=== PATIENT | female | born 2000 | race Caucasian/White ===

== ENCOUNTER → 2020-03-19 | Outpatient (CLI) | payer BC, MEDICAID ==
[2020-03-19] VITALS (17 sets, daily range): BP systolic 114–138; BP diastolic 60–94
== END | disposition home or self-care (01) ==
LOC: CARD DIAG 12:22
PROVIDERS: ATTEND Internal Medicine Interventional Cardiology
DX: R55 Syncope and collapse (principal)
CPT/HCPCS: 93660

== ENCOUNTER 2021-12-28 14:54 | Emergency (ER) | payer BC, MEDICAID ==
[~2021-12-28] VITALS: Ht 170.2 cm; Wt 52.0 kg
[2021-12-28] MEDS ORDERED: ondansetron/PF 4mg/2ml inj IV ONE (15:10)
[2021-12-28] MEDS ORDERED: haloperidol lactate 5mg/ml inj IM ONE (15:10)
[2021-12-28] MEDS ORDERED: diphenhydrAMINE 50 mg/ml inj IM ONE (15:10)
[2021-12-28] MEDS ORDERED: normal saline 1000ML IV soln IVB ONE (15:10)
[2021-12-28] MEDS ORDERED: LORazepam 2 mg/ml vial IV ONE (15:10)
--- NOTE | 2021-12-28 15:44 | NUR ---
REGISTRATION OBTAINED PARENT CONTACT #'S: BEATRIZ THOMPSON, MOTHER SHAKIR THOMPSON, FATHER PT'S MOTHER IS THE ONLY CONTACT LISTED ON PT'S CHART.
[2021-12-28 16:08] LABS: BASOPHILS % (AUTO) 0.3 % (0-1); EOSINOPHILS % (AUTO) 0.8 % (0-6); HEMATOCRIT 36.7 % (35.0-45.0); HEMOGLOBIN 12.2 g/dl (12.0-16.0); LYMPHOCYTES # (AUTO) 0.9 X10'3 (1.1-4.8); LYMPHOCYTES % (AUTO) 19.4 % (21-51); MEAN CORPUSCULAR HEMOGLOBIN 30.9 PG (27.0-31.0); MEAN CORPUSCULAR HGB CONC 33.3 g/dL (33.0-36.5); MEAN CORPUSCULAR VOLUME 92.6 FL (78-98); MEAN PLATELET VOLUME 8.8 FL (7.4-10.4); MONOCYTES # (AUTO) 0.3 X10'3 (0-0.9); MONOCYTES % (AUTO) 7.3 % (2-12); NEUTROPHILS # (AUTO) 3.5 X10'3 (1.8-7.7); NEUTROPHILS % (AUTO) 72.2 % (42-75); PLATELET COUNT 144 X10'3 (140-440); RED BLOOD COUNT 3.96 X10'6 (4.20-5.60); RED CELL DISTRIBUTION WIDTH 13.5 % (11.5-14.5); WHITE BLOOD COUNT 4.8 X10'3 (4.5-11.0)
--- NOTE | 2021-12-28 16:36 | NUR ---
ANKLE RESTRAINTS REMOVED PER PROVIDER REQUEST TO SEE HOW PT DOES.
[2021-12-28 16:38] LABS: ALANINE AMINOTRANSFERASE 34 U/L (12-78); ALBUMIN 3.6 G/DL (3.4-5.0); ALBUMIN/GLOBULIN RATIO 1.2 (1.1-1.5); ALKALINE PHOSPHATASE 69 IU/L (46-116); ANION GAP 13 (8-16); ASPARTATE AMINO TRANSFERASE 22 U/L (10-37); BILIRUBIN,TOTAL 0.3 MG/DL (0.1-1.0); BLOOD UREA NITROGEN 8 MG/DL (7-18); BUN/CREATININE RATIO 9.4 (6.6-38.0); CALCIUM 7.8 MG/DL (8.5-10.1); CHLORIDE 109 MMOL/L (99-107); CREATININE 0.85 MG/DL (0.40-0.90); GLUCOSE 68 MG/DL (70-104); POTASSIUM 3.6 MMOL/L (3.5-5.1); SODIUM 145 MMOL/L (135-145); TOTAL CARBON DIOXIDE 23.1 MMOL/L (24-32); TOTAL PROTEIN 6.6 G/DL (6.4-8.2); eGFR 83 ML/MIN
[2021-12-28 16:47] LABS: ETHANOL < 0.010 GM/DL (0.0-0.010)
[2021-12-28 17:31] LABS: CREATINE KINASE 134 U/L (26-192)
--- NOTE | 2021-12-28 18:00 | NUR ---
wrist retraints removed, assist to commoded, answering quesions appropriately
[2021-12-28 18:36] LABS: CLARITY,URINE SLIGHTLY CLOUDY (Clear); COLOR,URINE YELLOW (Yellow); GLUCOSE, URINE NEGATIVE (Neg); KETONES,URINE 15 mg/dl (Neg); LEUKOCYTE ESTERASE ,URINE NEGATIVE (Neg); NITRITES, URINE NEGATIVE (Neg); OCCULT BLOOD,URINE NEGATIVE (Neg); PH,URINE 6.5 (4.8-8.0); PROTEIN,URINE TRACE mg/dl (Neg); UROBILINOGEN,URINE 0.2 E.U/dL (0.2-1.0)
[2021-12-28 18:43] LABS: URINE HCG NEGATIVE (NEG)
[2021-12-28 18:49] LABS: URINE AMPHETAMINE SCREEN NEGATIVE (Neg); URINE BARBITUATE SCREEN NEGATIVE (Neg); URINE BENZODIAZEPINES SCREEN POSITIVE (Neg); URINE CANNABINOID SCREEN NEGATIVE (Neg); URINE COCAINE SCREEN NEGATIVE (Neg); URINE METHADONE SCREEN NEGATIVE (Neg); URINE OPIATE SCREEN NEGATIVE (Neg); URINE PHENCYCLIDINE SCREEN NEGATIVE (Neg)
[2021-12-28 18:56] LABS: UA COLLECTION TYPE CLN CATCH MIDSTREAM
[2021-12-28 19:04] LABS: BACTERIA,URINE 2+ /HPF (Neg); MUCUS STRANDS FEW /LPF (Neg); SQUAMOUS EPITHELIAL CELL,UR FEW /LPF (FEW); WBC,URINE 0-4 /HPF (0-4)
[2021-12-28 19:05] LABS: CAL OXALATE CRYSTALS FEW /HPF (NEGATIVE); HYALINE CASTS 0-3 /LPF (NEGATIVE)
[2021-12-28] MEDS ORDERED: QUET100T34 PO (21:16)
[2021-12-28] MEDS ORDERED: OLAN5TAB75 PO (21:16)
[2021-12-28] MEDS ORDERED: ERGO500054 (21:16)
[2021-12-28] MEDS ORDERED: BUPR300T86 PO (21:16)
[2021-12-28] MEDS ORDERED: BUPR-317 PO (21:16)
[2021-12-28] MEDS ORDERED: DULO30CA52 PO (21:16)
[2021-12-28] MEDS ORDERED: PROP10TA10 PO (21:16)
[2021-12-28] MEDS ORDERED: LAMO25TA5 (21:16)
[2021-12-28] MEDS ORDERED: LEVO20CA PO (21:16)
--- NOTE | 2021-12-28 21:58 | NUR ---
PACKET SENT TO [facility]
--- NOTE | 2021-12-28 23:07 | NUR ---
The patient has been resting quietly on her bed. She currently appears to be sleeping
--- NOTE | 2021-12-29 00:22 | NUR ---
The patient appears to be sleeping
--- NOTE | 2021-12-29 02:05 | NUR ---
The patient appears to be sleeping
--- NOTE | 2021-12-29 04:23 | NUR ---
The patient appears to be sleeping
--- NOTE | 2021-12-29 05:21 | NUR ---
The patient appears to be sleeping
--- NOTE | 2021-12-29 06:30 | NUR ---
Pt is lying in bed on her right side, she appears to be sleeping.
[2021-12-29] MEDS ORDERED: propranolol 10mg tablet PO SCH (08:00)
--- NOTE | 2021-12-29 08:14 | NUR ---
Held pt's Inderal for decreased BP 97/61.
--- NOTE | 2021-12-29 09:51 | NUR ---
Pt ate breakfast then went back to sleep.
--- NOTE | 2021-12-29 12:01 | NUR ---
[facility] at bedside evaluating pt.
--- NOTE | 2021-12-29 12:26 | NUR ---
Pt ate her lunch. Pt is endorsing depression and SI. When asked about a plan, pt stated that she couldn't do anything here. Asked pt what she would do when she went home. Pt thought about it for a bit and replied, "I like to jump." Pt denied AH/VH/HI. Pt stated that she doesn't want to hurt anyone else, that "they can all go on living this shitty life." Pt states that she would really rather go home and than go to a psych facility.
--- NOTE | 2021-12-29 13:27 | NUR ---
Joseph cormier in ED - 12/29/21 at 1530 by ANGIE Per [facility] pt is being on a 5150 for DTS.
--- NOTE | 2021-12-29 13:27 | NUR ---
Per [facility], pt is being put on a 5150 for DTS.
[2021-12-29] MEDS ORDERED: diphenhydrAMINE 50 mg/ml inj IM ONE (14:00)
[2021-12-29] MEDS ORDERED: haloperidol lactate 5mg/ml inj IM ONE (14:00)
[2021-12-29] MEDS ORDERED: LORazepam 2 mg/ml vial IM ONE (14:00)
--- NOTE | 2021-12-29 14:09 | NUR ---
Pt starts banging her head on the bed rail. Pt then starts punching herself in the face. Pt had a pillow on her head but then started hitting herself. When her hands were held to prevent self injury, pt started writhing and screaming. Pt then started biting herself. Pt placed in 4pt restraints with security at bedside. Pt then given Haldol 5mg IM, benadryl 50mg IM, Ativan 2mg IM.
--- NOTE | 2021-12-29 14:18 | NUR ---
Pt fell asleep. Removed leg restraints. pt woke up before arm restraints removed.
--- NOTE | 2021-12-29 14:39 | NUR ---
Pt calm and sleepy. Restraints removed
--- NOTE | 2021-12-29 15:02 | NUR ---
[facility] called, pt has been accepted at [facility] by Dr Marie at 1430.
--- NOTE | 2021-12-29 15:28 | NUR ---
[employer] here to transport pt to [facility], pt alert, used the toilet, escorted off the unit by security and customer service driver.
[2021-12-29 16:07] VITALS: BP 106/69
== END 2021-12-29 15:28 ==
LOC: ER 14:55
DX: R45.1 Restlessness and agitation (principal); Z20.822 Contact with and (suspected) exposure to COVID-19; R46.89 Other symptoms and signs involving appearance and behavior; Z88.8 Allergy status to other drugs, medicaments and biological substances; Z91.011 Allergy to milk products
CPT/HCPCS: 36415; 80053; 80305; 80320; 81001; 81025; 82550; 84443; 85025; 87811; 96372; 99291; J1200; J1630; J2060; J7030

== ENCOUNTER 2023-11-14 14:57 | Inpatient (IN) | payer BC, MEDICAID ==
[~2023-11-14] VITALS: Ht 167.6 cm; Wt 65.2 kg
[~2023-11-14 14:57] MED LIST: PROP10TA10 PO
[2023-11-14 15:46] LABS: BASOPHILS % (AUTO) 0.5 % (0-1); EOSINOPHILS % (AUTO) 0.6 % (0-6); HEMATOCRIT 43.6 % (35.0-45.0); HEMOGLOBIN 14.7 g/dl (12.0-16.0); LYMPHOCYTES % (AUTO) 20.5 % (21-51); MEAN CORPUSCULAR HGB CONC 33.6 g/dL (33.0-36.5); MEAN CORPUSCULAR VOLUME 92.1 FL (78-98); MEAN PLATELET VOLUME 8.1 FL (7.4-10.4); MONOCYTES # (AUTO) 0.3 X10'3 (0-0.9); MONOCYTES % (AUTO) 5.8 % (2-12); NEUTROPHILS # (AUTO) 3.6 X10'3 (1.8-7.7); NEUTROPHILS % (AUTO) 72.6 % (42-75); PLATELET COUNT 210 X10'3 (140-440); RED BLOOD COUNT 4.73 X10'6 (4.20-5.60); RED CELL DISTRIBUTION WIDTH 12.6 % (11.5-14.5)
[2023-11-14 16:20] LABS: ALBUMIN 4.3 G/DL (3.4-5.0); ANION GAP 7 (8-16); BLOOD UREA NITROGEN 12 MG/DL (7-18); BUN/CREATININE RATIO 12.4 (10.0-20.0); CALCIUM 8.6 MG/DL (8.5-10.1); CHLORIDE 105 MMOL/L (99-107); CREATININE 0.97 MG/DL (0.40-0.90); ETHANOL < 10 MG/DL (<10); GLUCOSE 81 MG/DL (70-104); SODIUM 142 MMOL/L (135-145); THYROID STIMULATING HORMONE 1.29 ulU/ml (0.34-4.50); TOTAL CARBON DIOXIDE 30.2 MMOL/L (24-32); eCRCL 83 ML/MIN; eGFR 70 ML/MIN
[2023-11-14 17:31] LABS: BILIRUBIN,URINE NEGATIVE (Neg); CLARITY,URINE SLIGHTLY CLOUDY (Clear); COLOR,URINE YELLOW (Yellow); GLUCOSE, URINE NEGATIVE (Neg); KETONES,URINE NEGATIVE (Neg); LEUKOCYTE ESTERASE ,URINE NEGATIVE (Neg); NITRITES, URINE NEGATIVE (Neg); OCCULT BLOOD,URINE TRACE-INTACT (Neg); PROTEIN,URINE NEGATIVE (Neg); UROBILINOGEN,URINE 0.2 E.U/dL (0.2-1.0)
[2023-11-14 17:35] LABS: MUCUS STRANDS FEW /LPF (Neg); SQUAMOUS EPITHELIAL CELL,UR MODERATE /LPF (FEW); UA COLLECTION TYPE CLN CATCH MIDSTREAM
[2023-11-14 17:37] LABS: BACTERIA,URINE 1+ /HPF (Neg); WBC,URINE 0-4 /HPF (0-4)
[2023-11-14 17:38] LABS: URINE HCG NEGATIVE (NEG)
[2023-11-14] MEDS ORDERED: LURA60TA PO (17:45)
[2023-11-14 17:47] LABS: URINE AMPHETAMINE SCREEN NEGATIVE (Neg); URINE BARBITUATE SCREEN NEGATIVE (Neg); URINE BENZODIAZEPINES SCREEN NEGATIVE (Neg); URINE CANNABINOID SCREEN POSITIVE (Neg); URINE COCAINE SCREEN NEGATIVE (Neg); URINE METHADONE SCREEN NEGATIVE (Neg); URINE OPIATE SCREEN NEGATIVE (Neg); URINE PHENCYCLIDINE SCREEN NEGATIVE (Neg)
[2023-11-14] MEDS: lurasidone 20mg tablet PO ONE (18:53)
[2023-11-14] MEDS: acetaminophen 325mg tablet PO PRN (19:07)
[2023-11-15 02:20] VITALS: RESP 16
[2023-11-15 03:00] VITALS: BP 119/68; PULSE 75; RESP 16; TEMP 97; O2SAT 97
[2023-11-15] MEDS ORDERED: magnesium hydroxide 30ml (MOM) UD suspension PO PRN (03:25)
[2023-11-15] MEDS ORDERED: acetaminophen 325mg tablet PO PRN ×2 (03:25)
[2023-11-15] MEDS ORDERED: mag hydrox/Alum hydrox/simeth 30ml oral suspension PO PRN (03:25)
[2023-11-15 07:15] VITALS: BP 115/63; PULSE 76; RESP 16; TEMP 98.5; O2SAT 96
[2023-11-15 07:45] VITALS: RESP 16; O2SAT 96
[2023-11-15] MEDS: lurasidone 60mg tablet PO SCH (17:47)
[2023-11-15] MEDS: loperamide 2mg capsule PO ONE (17:55)
[2023-11-15 19:00] VITALS: RESP 14; O2SAT 100
[2023-11-15 20:00] VITALS: BP 103/64; PULSE 78; RESP 14; TEMP 98.4; O2SAT 100
[2023-11-15] MEDS: mirtazapine 15mg tablet PO SCH (20:11)
[2023-11-16 07:15] VITALS: BP 110/57; PULSE 71; RESP 16; TEMP 97.4; O2SAT 97
[2023-11-16 07:59] VITALS: RESP 16; O2SAT 97
[2023-11-16] MEDS: lurasidone 20mg tablet PO STA (17:40)
[2023-11-16 19:00] VITALS: RESP 16; O2SAT 98
[2023-11-16 20:00] VITALS: BP 114/72; PULSE 78; RESP 16; TEMP 97.7; O2SAT 98
[2023-11-16] MEDS: ondansetron 4mg rapidly disintigrating tab PO PRN (20:43)
[2023-11-17 07:30] VITALS: BP 104/56; PULSE 66; RESP 16; TEMP 97.1; O2SAT 98
[2023-11-17] MEDS: haloperidol lactate 5mg/ml inj ONE (17:02)
[2023-11-17] MEDS: diphenhydrAMINE 50 mg/ml inj ONE (17:02)
[2023-11-17] MEDS: LORazepam 2 mg/ml vial ONE (17:02)
[2023-11-17] MEDS: lurasidone 20mg tablet PO SCH (17:58)
[2023-11-17 19:00] VITALS: RESP 16
[2023-11-17 20:00] VITALS: RESP 18
[2023-11-18 07:34] VITALS: BP 110/61; PULSE 77; RESP 16; TEMP 98; O2SAT 100
[2023-11-18 19:00] VITALS: RESP 16; O2SAT 97
[2023-11-18 20:00] VITALS: BP 114/54; PULSE 93; RESP 16; TEMP 98.4; O2SAT 97
[2023-11-19] MEDS: mirtazapine 15mg tablet PO ONE (02:15)
[2023-11-19 07:40] VITALS: BP 109/56; PULSE 66; RESP 15; TEMP 97.9; O2SAT 100
[2023-11-19] MEDS ORDERED: LURA20TA2 PO (13:51)
[2023-11-19] MEDS ORDERED: MIRT-87 PO (13:51)
== END 2023-11-19 15:05 | disposition home or self-care (01) | DRG 885 ==
LOC: ER 14:57 → ED HOLD 19:42 → ADULT MH 19:43
PROVIDERS: ATTEND Psychiatry & Neurology Psychiatry
PROC: GZ56ZZZ Individual Psychotherapy, Supportive (ICD-10-PCS; principal; 2023-11-16)
PROC: GZHZZZZ Group Psychotherapy (ICD-10-PCS; 2023-11-16)
DX: F31.76 Bipolar disorder, in full remission, most recent episode depressed (principal); R45.851 Suicidal ideations; Z20.822 Contact with and (suspected) exposure to COVID-19; F84.0 Autistic disorder; F41.9 Anxiety disorder, unspecified; Z88.0 Allergy status to penicillin; Z91.012 Allergy to eggs; Z91.011 Allergy to milk products; Z91.51 Personal history of suicidal behavior
CPT/HCPCS: 36415; 80048; 80305; 80320; 81001; 81025; 84443; 85025; 87081; 87811; 99285; J1200; J1630; J2060

== ENCOUNTER 2023-11-27 11:40 | Emergency (ER) | payer BC, MEDICAID ==
[~2023-11-27] VITALS: Ht 167.6 cm; Wt 68.7 kg
[~2023-11-27 11:40] MED LIST changes: +LURA20TA2 PO; +MIRT-87 PO; -PROP10TA10 PO
[2023-11-27 12:30] LABS: BASOPHILS % (AUTO) 0.4 % (0-1); EOSINOPHILS # (AUTO) 0.1 X10'3 (0-0.9); HEMATOCRIT 41.4 % (35.0-45.0); HEMOGLOBIN 13.6 g/dl (12.0-16.0); LYMPHOCYTES # (AUTO) 1.3 X10'3 (1.1-4.8); LYMPHOCYTES % (AUTO) 20.5 % (21-51); MEAN CORPUSCULAR HGB CONC 32.8 g/dL (33.0-36.5); MEAN CORPUSCULAR VOLUME 91.4 FL (78-98); MEAN PLATELET VOLUME 8.2 FL (7.4-10.4); MONOCYTES # (AUTO) 0.4 X10'3 (0-0.9); MONOCYTES % (AUTO) 5.8 % (2-12); NEUTROPHILS # (AUTO) 4.5 X10'3 (1.8-7.7); NEUTROPHILS % (AUTO) 72.3 % (42-75); PLATELET COUNT 167 X10'3 (140-440); RED BLOOD COUNT 4.53 X10'6 (4.20-5.60); RED CELL DISTRIBUTION WIDTH 12.3 % (11.5-14.5); WHITE BLOOD COUNT 6.3 X10'3 (4.5-11.0)
[2023-11-27 12:37] LABS: ALBUMIN 3.6 G/DL (3.4-5.0); ANION GAP 6 (8-16); BLOOD UREA NITROGEN 5 MG/DL (7-18); BUN/CREATININE RATIO 5.6 (10.0-20.0); CHLORIDE 106 MMOL/L (99-107); ETHANOL < 10 MG/DL (<10); GLUCOSE 85 MG/DL (70-104); POTASSIUM 3.7 MMOL/L (3.5-5.1); SODIUM 141 MMOL/L (135-145); eCRCL 89 ML/MIN; eGFR 76 ML/MIN
[2023-11-27 13:27] LABS: BILIRUBIN,URINE NEGATIVE (Neg); CLARITY,URINE SLIGHTLY CLOUDY (Clear); COLOR,URINE YELLOW (Yellow); GLUCOSE, URINE NEGATIVE (Neg); KETONES,URINE NEGATIVE (Neg); LEUKOCYTE ESTERASE ,URINE NEGATIVE (Neg); NITRITES, URINE NEGATIVE (Neg); OCCULT BLOOD,URINE NEGATIVE (Neg); PH,URINE 6.5 (4.8-8.0); PROTEIN,URINE NEGATIVE (Neg); UROBILINOGEN,URINE 0.2 E.U/dL (0.2-1.0)
[2023-11-27 13:32] LABS: UA COLLECTION TYPE CLN CATCH MIDSTREAM; URINE HCG NEGATIVE (NEG)
[2023-11-27 13:33] LABS: BACTERIA,URINE 3+ /HPF (Neg); MUCUS STRANDS FEW /LPF (Neg); SQUAMOUS EPITHELIAL CELL,UR MANY /LPF (FEW)
[2023-11-27 13:34] LABS: WBC,URINE 0-4 /HPF (0-4)
[2023-11-27 13:35] LABS: CAL OXALATE CRYSTALS 4+ /HPF (NEGATIVE)
[2023-11-27 13:45] LABS: URINE AMPHETAMINE SCREEN NEGATIVE (Neg); URINE BARBITUATE SCREEN NEGATIVE (Neg); URINE BENZODIAZEPINES SCREEN NEGATIVE (Neg); URINE CANNABINOID SCREEN POSITIVE (Neg); URINE COCAINE SCREEN NEGATIVE (Neg); URINE METHADONE SCREEN NEGATIVE (Neg); URINE OPIATE SCREEN NEGATIVE (Neg); URINE PHENCYCLIDINE SCREEN NEGATIVE (Neg)
[2023-11-27] MEDS: nicotine 21mg patch - 24 hr TD ONE (15:24)
[2023-11-27] MEDS: acetaminophen 325mg tablet PO ONE (16:50)
[2023-11-27] MEDS ORDERED: LURA80TA2 PO (20:13)
[2023-11-27] MEDS ORDERED: MIRT-142 PO (20:14)
[2023-11-27] MEDS: mirtazapine 15mg tablet PO SCH (21:04)
[2023-11-27] MEDS: lurasidone 20mg tablet PO SCH (21:05)
[2023-11-28 11:58] VITALS: BP 122/72; PULSE 72; RESP 16; TEMP 98.8; O2SAT 99
== END 2023-11-28 11:40 | disposition short-term general hospital (02) ==
LOC: ER 11:41
DX: R45.851 Suicidal ideations (principal); F31.81 Bipolar II disorder; F12.90 Cannabis use, unspecified, uncomplicated; Z88.0 Allergy status to penicillin; Z91.012 Allergy to eggs; Z91.011 Allergy to milk products; Z91.018 Allergy to other foods; Z79.899 Other long term (current) drug therapy; Z20.822 Contact with and (suspected) exposure to COVID-19
CPT/HCPCS: 36415; 80048; 80305; 80320; 81001; 81025; 85025; 87811; 99285

== ENCOUNTER 2024-02-23 13:49 | Inpatient (IN) | payer BC, MEDICAID ==
[~2024-02-23] VITALS: Ht 167.6 cm; Wt 75.5 kg
[~2024-02-23 13:49] MED LIST changes: -LURA20TA2 PO; +LURA80TA2 PO; +MIRT-142 PO; -MIRT-87 PO
[2024-02-23 14:55] LABS: BASOPHILS % (AUTO) 0.4 % (0-1); EOSINOPHILS # (AUTO) 0.1 X10'3 (0-0.9); EOSINOPHILS % (AUTO) 0.8 % (0-6); HEMATOCRIT 41.7 % (35.0-45.0); HEMOGLOBIN 14.1 g/dl (12.0-16.0); LYMPHOCYTES # (AUTO) 1.1 X10'3 (1.1-4.8); LYMPHOCYTES % (AUTO) 13.5 % (21-51); MEAN CORPUSCULAR HEMOGLOBIN 31.1 PG (27.0-31.0); MEAN CORPUSCULAR HGB CONC 33.8 g/dL (33.0-36.5); MEAN CORPUSCULAR VOLUME 91.9 FL (78-98); MEAN PLATELET VOLUME 8.1 FL (7.4-10.4); MONOCYTES # (AUTO) 0.4 X10'3 (0-0.9); MONOCYTES % (AUTO) 5.1 % (2-12); NEUTROPHILS # (AUTO) 6.3 X10'3 (1.8-7.7); NEUTROPHILS % (AUTO) 80.2 % (42-75); PLATELET COUNT 211 X10'3 (140-440); RED BLOOD COUNT 4.53 X10'6 (4.20-5.60); RED CELL DISTRIBUTION WIDTH 12.6 % (11.5-14.5); WHITE BLOOD COUNT 7.9 X10'3 (4.5-11.0)
[2024-02-23 14:55] LABS: BILIRUBIN,URINE NEGATIVE (Neg); CLARITY,URINE CLOUDY (Clear); COLOR,URINE YELLOW (Yellow); GLUCOSE, URINE NEGATIVE (Neg); KETONES,URINE NEGATIVE (Neg); LEUKOCYTE ESTERASE ,URINE NEGATIVE (Neg); NITRITES, URINE NEGATIVE (Neg); OCCULT BLOOD,URINE TRACE-INTACT (Neg); PH,URINE 7.5 (4.8-8.0); PROTEIN,URINE NEGATIVE (Neg); UROBILINOGEN,URINE 0.2 E.U/dL (0.2-1.0)
[2024-02-23 14:57] LABS: UA COLLECTION TYPE CLN CATCH MIDSTREAM; URINE HCG NEGATIVE (NEG)
[2024-02-23 15:04] LABS: AMORPHOUS URATES 3+; BACTERIA,URINE FEW /HPF (Neg); MUCUS STRANDS NONE SEEN /LPF (Neg); RBC,URINE 0-2 /HPF (0-2); SQUAMOUS EPITHELIAL CELL,UR FEW /LPF (FEW); WBC,URINE 0-4 /HPF (0-4)
[2024-02-23 15:15] LABS: ALBUMIN 3.9 G/DL (3.4-5.0); ANION GAP 10 (8-16); BLOOD UREA NITROGEN 9 MG/DL (7-18); BUN/CREATININE RATIO 10.2 (10.0-20.0); CALCIUM 8.8 MG/DL (8.5-10.1); CHLORIDE 103 MMOL/L (99-107); CREATININE 0.88 MG/DL (0.40-0.90); ETHANOL < 10 MG/DL (<10); GLUCOSE 121 MG/DL (70-104); POTASSIUM 4.1 MMOL/L (3.5-5.1); SODIUM 139 MMOL/L (135-145); THYROID STIMULATING HORMONE 2.33 ulU/ml (0.34-4.50); TOTAL CARBON DIOXIDE 25.9 MMOL/L (24-32); eCRCL 91 ML/MIN; eGFR 78 ML/MIN
[2024-02-23 15:16] LABS: URINE AMPHETAMINE SCREEN NEGATIVE (Neg); URINE BARBITUATE SCREEN NEGATIVE (Neg); URINE BENZODIAZEPINES SCREEN NEGATIVE (Neg); URINE CANNABINOID SCREEN POSITIVE (Neg); URINE COCAINE SCREEN NEGATIVE (Neg); URINE METHADONE SCREEN NEGATIVE (Neg); URINE OPIATE SCREEN NEGATIVE (Neg); URINE PHENCYCLIDINE SCREEN NEGATIVE (Neg)
[2024-02-23] MEDS ORDERED: magnesium hydroxide 30ml (MOM) UD suspension PO PRN (20:20)
[2024-02-23] MEDS ORDERED: mag hydrox/Alum hydrox/simeth 30ml oral suspension PO PRN (20:20)
[2024-02-23] MEDS ORDERED: acetaminophen 325mg tablet PO PRN (20:20)
[2024-02-23 20:54] VITALS: RESP 18; O2SAT 99
[2024-02-23] MEDS ORDERED: lurasidone 20mg tablet PO ONE (21:25)
[2024-02-23] MEDS ORDERED: mirtazapine 15mg tablet PO ONE (21:25)
[2024-02-23] MEDS: traZODone 50mg tablet PO ONE (21:45)
[2024-02-23] MEDS: hydrOXYzine 25 MG tablet PO ONE (21:45)
[2024-02-23] MEDS: lamoTRIgine 25mg tablet PO SCH (22:09)
[2024-02-24 07:00] VITALS: RESP 14; O2SAT 97
[2024-02-24 07:23] LABS: CHOL/HDL RATIO 2.7 (0.00-4.99); CHOLESTEROL 147 MG/DL (0-200); HDL CHOLESTEROL 55 MG/DL (35-60); LDL CHOLESTEROL 79 MG/DL (50-100); TRIGLYCERIDES 106 MG/DL (20-135)
[2024-02-24 08:00] VITALS: BP 125/82; PULSE 114; RESP 14; TEMP 98.2; O2SAT 97
[2024-02-24 08:07] LABS: HEMOGLOBIN A1C 4.8 % (4.5-6.2)
[2024-02-24] MEDS: LORazepam 1 MG tablet PO ONE (09:36)
[2024-02-24 18:56] VITALS: RESP 20
[2024-02-24 19:19] VITALS: BP 126/71; PULSE 99; RESP 16; TEMP 99.3; O2SAT 98
[2024-02-24] MEDS ORDERED: LUMA42CA PO (19:41)
[2024-02-24] MEDS: lamoTRIgine 25mg tablet PO SCH (20:43)
[2024-02-24] MEDS: temazepam 15mg capsule PO SCH (20:44)
[2024-02-24] MEDS ORDERED: lamoTRIgine 25mg tablet PO SCH (21:00)
[2024-02-24] MEDS ORDERED: mirtazapine 15mg tablet PO SCH (21:00)
[2024-02-24] MEDS ORDERED: lithium carbonate 150mg capsule PO SCH (21:00)
[2024-02-24] MEDS ORDERED: traZODone 50mg tablet PO SCH (21:00)
[2024-02-24] MEDS ORDERED: lurasidone 20mg tablet PO SCH (21:00)
[2024-02-25] MEDS: acetaminophen 325mg tablet PO PRN (04:42)
[2024-02-25 07:00] VITALS: RESP 16; O2SAT 99
[2024-02-25 07:26] LABS: CHOL/HDL RATIO 2.4 (0.00-4.99); CHOLESTEROL 131 MG/DL (0-200); HDL CHOLESTEROL 55 MG/DL (35-60); LDL CHOLESTEROL 74 MG/DL (50-100); TRIGLYCERIDES 89 MG/DL (20-135)
[2024-02-25 08:18] VITALS: BP 108/63; PULSE 98; RESP 16; TEMP 97.7; O2SAT 99
[2024-02-25 19:00] VITALS: RESP 18; O2SAT 99
[2024-02-25 20:00] VITALS: BP 117/77; PULSE 95; RESP 16; TEMP 98.2; O2SAT 99
[2024-02-26 07:00] VITALS: BP 110/53; PULSE 80; RESP 16; TEMP 98; O2SAT 98
[2024-02-26 19:00] VITALS: RESP 16; O2SAT 100
[2024-02-26 19:46] VITALS: BP 127/80; PULSE 98; RESP 16; TEMP 98.2; O2SAT 100
[2024-02-26] MEDS: lamoTRIgine 25mg tablet PO SCH (20:44)
[2024-02-27] MEDS: haloperidol lactate 5mg/ml inj ONE (04:47)
[2024-02-27] MEDS: diphenhydrAMINE 50 mg/ml inj ONE (04:47)
[2024-02-27] MEDS: LORazepam 2 mg/ml vial IM ONE (04:50)
[2024-02-27] MEDS: diphenhydrAMINE 50 mg/ml inj IM ONE (04:50)
[2024-02-27] MEDS: haloperidol lactate 5mg/ml inj IM ONE (04:50)
[2024-02-27] MEDS: LORazepam 2 mg/ml vial ONE (04:51)
[2024-02-27 07:00] VITALS: RESP 16; O2SAT 99
[2024-02-27] MEDS ORDERED: LORazepam 2 mg/ml vial IM ONE (07:45)
[2024-02-27 08:00] VITALS: BP 123/82; PULSE 88; RESP 16; TEMP 98.1; O2SAT 99
[2024-02-27] MEDS ORDERED: hydrOXYzine 25 MG tablet PO PRN (08:05)
[2024-02-27] MEDS ORDERED: LORazepam 1 MG tablet PO PRN (17:30)
[2024-02-27 19:00] VITALS: BP 117/74; PULSE 109; RESP 16; TEMP 97.4; O2SAT 93
[2024-02-28 07:00] VITALS: RESP 12; O2SAT 99
[2024-02-28 08:00] VITALS: BP 123/76; PULSE 94; RESP 12; TEMP 98.2; O2SAT 99
[2024-02-28] MEDS ORDERED: TEMA15CA5 PO (12:52)
[2024-02-28] MEDS ORDERED: LAMO25TA5 PO (12:52)
[2024-02-28] MEDS ORDERED: LUMA42CA PO (12:54)
[2024-02-28 19:00] VITALS: BP 135/86; PULSE 91; RESP 16; TEMP 98.6; O2SAT 98
[2024-02-29 07:00] VITALS: RESP 16; O2SAT 99
[2024-02-29 07:40] VITALS: BP 123/69; PULSE 93; RESP 16; TEMP 98.4; O2SAT 99
== END 2024-02-29 12:04 | disposition home or self-care (01) | DRG 885 ==
LOC: ER 13:50 → UNDOADMIN 17:15 → ADULT MH 17:15
PROVIDERS: ADMIT Psychiatry & Neurology Psychiatry; ATTEND Psychiatry & Neurology Psychiatry
PROC: GZHZZZZ Group Psychotherapy (ICD-10-PCS; principal; 2024-02-24)
PROC: GZ51ZZZ Individual Psychotherapy, Behavioral (ICD-10-PCS; 2024-02-24)
DX: F33.9 Major depressive disorder, recurrent, unspecified (principal); R45.851 Suicidal ideations; Z20.822 Contact with and (suspected) exposure to COVID-19; F84.0 Autistic disorder; K58.9 Irritable bowel syndrome, unspecified; F41.9 Anxiety disorder, unspecified; Z88.0 Allergy status to penicillin
CPT/HCPCS: 36415; 80048; 80061; 80305; 80320; 81001; 81025; 83036; 84443; 85025; 87081; 87811; 99285; J1200; J1630; J2060; Q0177